=== PATIENT | male | born 1950 | race Caucasian/White ===

== ENCOUNTER → 2023-04-28 12:40 | Outpatient (REF) | payer OTHER, SELFPAY | LOC: HWRAD 12:40 | PROVIDERS: ATTENDING PHYSICIAN Nurse Practitioner | DX: K43.9 Ventral hernia without obstruction or gangrene (principal); R22.9 Localized swelling, mass and lump, unspecified | CPT/HCPCS: 76705; 76882 ==

== ENCOUNTER → 2023-06-09 09:31 | Outpatient (REF) | payer OTHER, SELFPAY | LOC: HWRAD 09:31 | PROVIDERS: ATTENDING PHYSICIAN Surgery Vascular Surgery; FAMILY PHYSICIAN Nurse Practitioner | DX: I72.8 Aneurysm of other specified arteries (principal) | CPT/HCPCS: 74174; Q9967 ==

== ENCOUNTER → 2023-06-12 15:47 | Outpatient (REF) | payer OTHER, SELFPAY | LOC: PAVMRI 15:47 | PROVIDERS: ATTENDING PHYSICIAN Student in an Organized Health Care Education/Training Program; FAMILY PHYSICIAN Nurse Practitioner | DX: M25.511 Pain in right shoulder (principal) | CPT/HCPCS: 73221 ==

== ENCOUNTER 2023-07-21 06:10 | Day surgery (SDC) | payer OTHER, SELFPAY ==
[2023-07-21] VITALS (8 sets, daily range): BP systolic 130–148; BP diastolic 68–76
[2023-07-21] MEDS: CELEBREX 200 MG PO (07:54)
[2023-07-21] MEDS: TYLENOL 1000 MG PO (07:54)
[2023-07-21] MEDS: NORMOSOL-R 1000 IV (07:55)
== END 2023-07-21 11:25 | disposition home or self-care (01) ==
LOC: SDS 06:10
PROVIDERS: ATTENDING PHYSICIAN Orthopaedic Surgery Hand Surgery
DX: S46.011A Strain of muscle(s) and tendon(s) of the rotator cuff of right shoulder, initial encounter (principal); S43.431A Superior glenoid labrum lesion of right shoulder, initial encounter; X58.XXXA Exposure to other specified factors, initial encounter; M75.42 Impingement syndrome of left shoulder
CPT/HCPCS: 29827; 29828; 29826; C1713

== ENCOUNTER → 2024-07-11 09:07 | Outpatient (REF) | payer OTHER, SELFPAY | LOC: RAD 09:07 | PROVIDERS: ATTENDING PHYSICIAN Surgery Vascular Surgery | DX: I72.8 Aneurysm of other specified arteries (principal) | CPT/HCPCS: 74174; Q9967 ==